=== PATIENT | male | born 1945 | race Two or more races ===

== ENCOUNTER 2017-08-18 23:02 | Inpatient (IN) ==
[2017-08-18] MEDS ORDERED: SODIUM CHLORIDE 0.9% 1,000 ML IV STA (23:12)
[2017-08-18] MEDS ORDERED: ONDANSETRON 4 MG/2 ML VIAL IV STA (23:12)
[2017-08-18] MEDS ORDERED: KETOROLAC 30 MG/1 ML VIAL IV STA (23:14)
[2017-08-18] MEDS ORDERED: INSULIN REGULAR 100 UNIT/ML IV STA (23:37)
[2017-08-18] MEDS ORDERED: KETOROLAC 30 MG/1 ML VIAL ONE (23:43)
[2017-08-18] MEDS ORDERED: ONDANSETRON 4 MG/2 ML VIAL ONE (23:43)
[2017-08-18] MEDS ORDERED: INSULIN NPH 100 UNIT/ML SUBCUT ONE (23:44)
[2017-08-18] MEDS ORDERED: INSULIN REGULAR 100 UNIT/ML ONE (23:45)
[2017-08-19 00:04] LABS: Albumin 3.5 G/DL (3.4-5.0); Bilirubin,Total 0.5 MG/DL (0.2-1.0); Calcium 8.8 MG/DL (8.5-10.1); Magnesium 2.5 MG/DL (1.8-2.4); Osmolality,Calculated 296.9 MOS/KG (273-304); Potassium 2.8 MMOL/L (3.5-5.1); Total Protein 7.3 G/DL (6.4-8.3)
[2017-08-19 00:16] LABS: Lactic Acid 0.9 MMOL/L (0.4-2.0)
[2017-08-19 00:23] LABS: Basophils % 0.8 % (0.0-0.8); Eosinophils # 0.1 10*3/uL (0.0-0.87); Eosinophils % 2.3 % (0.00-10.9); Immature Granulocytes % 0.6 %; Immature Granulocytes Absolute 0.03 #; Lymphocytes # 1.1 10*3/uL (1.4-4.0); Lymphocytes % 22.2 % (21.2-54.2); Mean Corpuscular Hemoglobin 31 PG (27-34); Mean Corpuscular Volume 81.8 FL (87-102); Mean Platelet Volume 10.7 FL (9.6-12.0); Monocytes # 0.3 10*3/uL (0.11-0.8); Monocytes % 6.6 % (1.7-12.7); Neutrophils # 3.3 10*3/uL (1.4-7.4); Neutrophils % 67.5 % (38.7-73.9); Platelet Count 197 T/CUMM (130-400); Red Cell Distribution Width 12.2 % (9.3-17.3)
[2017-08-19] MEDS ORDERED: POTASSIUM CHLORIDE 20 MEQ TABLET PO ONE (00:29)
[2017-08-19] MEDS ORDERED: POTASSIUM CHLORIDE 20 MEQ TABLET PO STA (00:29)
[2017-08-19 00:31] LABS: Hematocrit 31.3 VOL% (42.0-52.0); Hemoglobin 12.1 GM/DL (14.0-18.0)
[2017-08-19] MEDS ORDERED: SODIUM CHLORIDE 0.9% 1,000 ML IV STA ×2 (00:45→10:36)
[2017-08-19] MEDS ORDERED: INSULIN REGULAR 100 UNIT/ML IV STA ×2 (00:50→02:01)
[2017-08-19] MEDS ORDERED: INSULIN REGULAR 100 UNIT/ML ONE ×4 (00:52→15:16)
[2017-08-19] MEDS ORDERED: POTASSIUM CHLORIDE RIDER 20 MEQ in PREMIX 1 EACH IV STA (01:09)
[2017-08-19 02:08] LABS: Band Neutrophils 3 % (0-10); Eosinophils 3 % (0-10); Lymphocytes 23 % (20-55); Segmented Neutrophils 63 % (50-85); Total Cells Counted 100
[2017-08-19 02:09] LABS: Anisocytosis 1+; Hypochromasia 1+; Microcytosis 1+; Platelet Estimate Normal
[2017-08-19 02:47] LABS: Apearance,Urine CLEAR (Clear); Bacteria,Urine Occasional /HPF (Few); Bilirubin,Urine Negative (Negative); Blood, Urine Small mg/dL (Negative); Glucose,Urine (UA) >=500 mg/dL (Negative); Hyaline Casts,Urine 1 /LPF (0-3); Ketones,Urine 20 mg/dL (Negative); Mucus,Urine Occasional /LPF (Occasional); Nitrite,Urine Negative (Negative); Protein,Urine Negative; Urine Color Straw (Yellow); Urine Urobilinogen < 2.0 EU/DL (0.2-1.0); WBC,Urine <1 /HPF (0-6)
[2017-08-19 03:22] LABS: Osmolality,Calculated 299.5 MOS/KG (273-304)
[2017-08-19] MEDS ORDERED: DEXTROSE 50% 25 GM/50 ML VIAL IV PRN ×2 (04:37)
[2017-08-19] MEDS ORDERED: SODIUM CHLORIDE 0.9% IV PRN (04:37)
[2017-08-19] MEDS ORDERED: SODIUM PHOSPHATE IV PRN (04:37)
[2017-08-19] MEDS ORDERED: MAGNESIUM SULF RIDER 2 GM in PREMIX 1 EACH IV PRN (04:37)
[2017-08-19] MEDS ORDERED: SODIUM BICARB INJ 100 MEQ in STERILE WATER INJ 400 ML IV PRN (04:37)
[2017-08-19] MEDS ORDERED: INSULIN REGULAR 100 UNIT/ML IV ONE (04:37)
[2017-08-19] MEDS ORDERED: CALCIUM CHLORIDE 1,000 MG/10 ML SYRINGE IV ONE ×2 (04:37→05:21)
[2017-08-19] MEDS ORDERED: MAGNESIUM SULF RIDER 4 GM in PREMIX 1 EACH IV PRN (04:37)
[2017-08-19] MEDS ORDERED: INSULIN REGULAR DRIP 100 ML IV SCH ×3 (04:37→13:30)
[2017-08-19] MEDS: ENOXAPARIN 30 MG/0.3 ML SYRINGE SUBCUT SCH (04:40)
[2017-08-19] MEDS: cefTRIAXone 1,000 MG in SYRINGE 1 EACH IV SCH ×2 (04:45→18:06)
[2017-08-19] MEDS ORDERED: cefTRIAXone 1,000 MG VIAL ONE (05:20)
[2017-08-19] MEDS ORDERED: ENOXAPARIN 40 MG/0.4 ML SYRINGE ONE (05:21)
[2017-08-19 05:26] LABS: Calcium 8.3 MG/DL (8.5-10.1); Osmolality,Calculated 302.2 MOS/KG (273-304); Potassium 3.2 MMOL/L (3.5-5.1)
[2017-08-19 05:33] LABS: VBG Base Excess -9.3 MEQ/L (0-4); VBG HCO3 16.3 MEQ/L (24-28); VBG Oxygen Saturation 98.4 %; VBG PCO2 34.2 MMHG (41-51); VBG PH 7.296
[2017-08-19 05:35] LABS: Risk Ratio 10.72; VLDL CHOLESTEROL 163.8 MG/DL
[2017-08-19] MEDS: SODIUM CHLORIDE 0.9% 1,000 ML IV SCH ×2 (06:14→18:23)
[2017-08-19 06:54] LABS: ABG Base Excess -9.4 MMOL/L (-2.5-2.5); ABG HCO3 16.9 MMOL/L (20-26); ABG Oxygen Saturation 95.8 % (95-100); ABG PCO2 31.6 MM HG (35-48); ABG PH 7.311 (7.35-7.45); ABG PO2 79.3 MM HG (80-95); ABG TCO2 14.7 MMOL/L (23-27); Allen Test Positive; Pt O2 Delivery Device Room Air
[2017-08-19] MEDS ORDERED: SODIUM CHLORIDE 0.9% 1,000 ML IV SCH ×2 (08:44→14:00)
[2017-08-19 10:17] LABS: Calcium 8.6 MG/DL (8.5-10.1); Osmolality,Calculated 297.2 MOS/KG (273-304)
[2017-08-19 10:21] LABS: Potassium 2.5 MMOL/L (3.5-5.1)
[2017-08-19] MEDS ORDERED: PANTOPRAZOLE 40 MG VIAL IV SCH (11:30)
[2017-08-19 11:46] LABS: Alanine Aminotransferase 17 U/L (16-61); Albumin 2.8 G/DL (3.4-5.0); Alkaline Phosphatase 99 U/L (45-117); Aspartate Amino Transferase 16 U/L (0-37); Bilirubin,Total < 0.39 MG/DL (0.2-1.0); Blood Urea Nitrogen 76 MG/DL (7-18); Calcium 9.1 MG/DL (8.5-10.1); Glucose 136 MG/DL (74-106); Osmolality,Calculated 294.1 MOS/KG (273-304); Sodium 135 MMOL/L (136-145); Total Protein 6.5 G/DL (6.4-8.3)
[2017-08-19 11:47] LABS: Potassium 2.5 MMOL/L (3.5-5.1)
[2017-08-19] MEDS ORDERED: POTASSIUM CHLORIDE RIDER 100 ML IV ONE (11:56)
[2017-08-19] MEDS ORDERED: POTASSIUM CHLORIDE RIDER 10 MEQ in PREMIX 1 EACH IV PRN (11:57)
[2017-08-19] MEDS: POTASSIUM CHLORIDE RIDER 10 MEQ in PREMIX 1 EACH IV PRN ×2 (12:17→20:54)
[2017-08-19] MEDS ORDERED: DEXTROSE 50% 25 GM/50 ML SYRINGE IV ONE (12:29)
[2017-08-19] MEDS ORDERED: PANTOPRAZOLE 40 MG VIAL IV ONE (13:26)
[2017-08-19 13:50] LABS: Free T4 (Free Thyroxine) 1.14 NG/DL (0.76-1.46); Thyroid Stimulating Hormone 0.52 uIU/ml (0.358-3.74)
[2017-08-19 13:54] LABS: Osmolality,Calculated 298.5 MOS/KG (273-304); Potassium 2.8 MMOL/L (3.5-5.1)
[2017-08-19] MEDS ORDERED: INSULIN GLARGINE 100 UNIT/ML SUBCUT STA (14:40)
[2017-08-19] MEDS ORDERED: GLUCAGON 1 MG VIAL IM PRN (14:40)
[2017-08-19] MEDS ORDERED: INSULIN REGULAR 100 UNIT/ML SUBCUT STA (14:42)
[2017-08-19] MEDS ORDERED: DEXTROSE 5% NACL 0.9% 1,000 ML IV SCH (15:00)
[2017-08-19] MEDS: INSULIN REGULAR 100 UNIT/ML SUBCUT SCH ×3 (17:48→23:05)
[2017-08-19 19:01] LABS: Calcium 8.5 MG/DL (8.5-10.1); Osmolality,Calculated 297.7 MOS/KG (273-304); Potassium 2.6 MMOL/L (3.5-5.1)
[2017-08-19] MEDS ORDERED: SODIUM CHLORIDE 0.9% 1,000 ML IV ONE (19:17)
[2017-08-19] MEDS ORDERED: SODIUM CHLORIDE 0.45% 1,000 ML IV SCH (20:44)
[2017-08-19] MEDS: SODIUM CHLOR 0.9% KCL 20 MEQ 20 MEQ/1,000 ML BAG IV SCH (20:54)
[2017-08-19 21:03] LABS: Calcium 8.5 MG/DL (8.5-10.1); Osmolality,Calculated 303.7 MOS/KG (273-304); Potassium 3.2 MMOL/L (3.5-5.1)
[2017-08-20 01:27] LABS: Calcium 8.7 MG/DL (8.5-10.1); Osmolality,Calculated 299.7 MOS/KG (273-304); Phosphorous 2.6 MG/DL (2.5-4.9); Potassium 2.9 MMOL/L (3.5-5.1)
[2017-08-20] MEDS: POTASSIUM CHLORIDE RIDER 10 MEQ in PREMIX 1 EACH IV PRN (01:41)
[2017-08-20] MEDS: SODIUM CHLOR 0.9% KCL 20 MEQ 20 MEQ/1,000 ML BAG IV SCH (02:08)
[2017-08-20] MEDS: INSULIN REGULAR 100 UNIT/ML SUBCUT SCH ×6 (04:03→20:33)
[2017-08-20] MEDS: cefTRIAXone 1,000 MG in SYRINGE 1 EACH IV SCH (04:03)
[2017-08-20] MEDS ORDERED: POTASSIUM CHLORIDE 20 MEQ TABLET PO ONE ×2 (05:06→10:00)
[2017-08-20] MEDS: PANTOPRAZOLE 40 MG TABLET PO SCH (08:49)
[2017-08-20] MEDS: POTASSIUM CHLORIDE 20 MEQ TABLET PO SCH ×4 (08:50→20:33)
[2017-08-20] MEDS: ENOXAPARIN 30 MG/0.3 ML SYRINGE SUBCUT SCH (08:50)
[2017-08-20] MEDS ORDERED: INSULIN GLARGINE 100 UNIT/ML SUBCUT SCH ×2 (09:00)
[2017-08-20] MEDS ORDERED: BISACODYL 5 MG TABLET PO ONE (09:55)
[2017-08-20] MEDS: POLYETHYLENE GLYCOL POWDER 17 GM PACK PO SCH (10:29)
[2017-08-20] MEDS: SODIUM CHLORIDE 0.9% 1,000 ML IV SCH ×4 (10:42→22:48)
[2017-08-20] MEDS ORDERED: HYDROCORTISONE 2.5% RECTAL CREAM 30 GM TUBE TOP PRN (14:05)
[2017-08-20] MEDS ORDERED: INSULIN LISPRO 100 UNIT/ML SUBCUT SCH (17:00)
[2017-08-20 17:17] LABS: Calcium 8.9 MG/DL (8.5-10.1); Osmolality,Calculated 299.7 MOS/KG (273-304); Potassium 3.5 MMOL/L (3.5-5.1)
[2017-08-20] MEDS: SODIUM BICARBONATE 650 MG TABLET PO SCH (20:33)
[2017-08-21] MEDS: SODIUM CHLORIDE 0.9% 1,000 ML IV SCH ×3 (00:14→10:41)
[2017-08-21 07:15] LABS: Basophils # 0.1 10*3/uL (0.0-0.2); Basophils % 1.4 % (0.0-0.8); Eosinophils # 0.3 10*3/uL (0.0-0.87); Hematocrit 24.3 VOL% (42.0-52.0); Immature Granulocytes % 0.7 %; Immature Granulocytes Absolute 0.03 #; Lymphocytes # 1.8 10*3/uL (1.4-4.0); Lymphocytes % 41.3 % (21.2-54.2); Mean Corpuscular Hemoglobin 32 PG (27-34); Mean Corpuscular Volume 85.9 FL (87-102); Mean Platelet Volume 10.2 FL (9.6-12.0); Monocytes # 0.5 10*3/uL (0.11-0.8); Monocytes % 12.1 % (1.7-12.7); Neutrophils # 1.7 10*3/uL (1.4-7.4); Neutrophils % 38.5 % (38.7-73.9); Red Cell Distribution Width 13.4 % (9.3-17.3); White Blood Count 4.3 T/CUMM (4-12)
[2017-08-21 07:17] LABS: Platelet Count 154 T/CUMM (130-400); Red Blood Count 2.83 MC/CUMM (3.8-5.5)
[2017-08-21 07:25] LABS: Calcium 8.6 MG/DL (8.5-10.1); Potassium 3.1 MMOL/L (3.5-5.1)
[2017-08-21] MEDS ORDERED: INSULIN GLARGINE 100 UNIT/ML SUBCUT SCH (07:40)
[2017-08-21 07:52] LABS: Eosinophils 4 % (0-10); Hypochromasia 1+; Lymphocytes 43 % (20-55); Risk Ratio 8.6; Segmented Neutrophils 43 % (50-85); Total Cells Counted 100
[2017-08-21 07:53] LABS: Microcytosis 1+; Platelet Estimate Adequate
[2017-08-21] MEDS: INSULIN REGULAR 100 UNIT/ML SUBCUT SCH ×4 (08:32→20:26)
[2017-08-21] MEDS: INSULIN LISPRO 100 UNIT/ML SUBCUT SCH ×3 (08:33→16:08)
[2017-08-21] MEDS: SODIUM BICARBONATE 650 MG TABLET PO SCH ×3 (08:35→20:25)
[2017-08-21] MEDS: POTASSIUM CHLORIDE 20 MEQ TABLET PO SCH ×4 (08:35→20:25)
[2017-08-21] MEDS: PANTOPRAZOLE 40 MG TABLET PO SCH (08:35)
[2017-08-21] MEDS: ENOXAPARIN 30 MG/0.3 ML SYRINGE SUBCUT SCH (08:35)
[2017-08-21] MEDS: POLYETHYLENE GLYCOL POWDER 17 GM PACK PO SCH ×2 (08:36→10:22)
[2017-08-21 09:25] LABS: Basophils # 0.1 10*3/uL (0.0-0.2); Basophils % 1.2 % (0.0-0.8); Eosinophils # 0.3 10*3/uL (0.0-0.87); Eosinophils % 5.8 % (0.00-10.9); Hematocrit 25.7 VOL% (42.0-52.0); Hemoglobin 9.4 GM/DL (14.0-18.0); Immature Granulocytes Absolute 0.05 #; Lymphocytes # 1.7 10*3/uL (1.4-4.0); Lymphocytes % 35.1 % (21.2-54.2); Mean Corpuscular HGB Conc 36.6 GM/DL (32-36); Mean Corpuscular Hemoglobin 32 PG (27-34); Mean Corpuscular Volume 86.8 FL (87-102); Mean Platelet Volume 10.3 FL (9.6-12.0); Monocytes # 0.5 10*3/uL (0.11-0.8); Monocytes % 10.7 % (1.7-12.7); Neutrophils # 2.2 10*3/uL (1.4-7.4); Neutrophils % 46.2 % (38.7-73.9); Platelet Count 180 T/CUMM (130-400); Red Blood Count 2.96 MC/CUMM (3.8-5.5); Red Cell Distribution Width 13.6 % (9.3-17.3); White Blood Count 4.8 T/CUMM (4-12)
[2017-08-21 10:06] LABS: Folate 12.2 NG/ML (5.4-24.0); Vitamin B12 1184 PG/ML (211-911)
[2017-08-21 11:08] LABS: Sedimentation Rate-Westergren 114 MM/HR (0-20)
[2017-08-22 06:54] LABS: Basophils # 0.1 10*3/uL (0.0-0.2); Basophils % 1.3 % (0.0-0.8); Eosinophils # 0.3 10*3/uL (0.0-0.87); Eosinophils % 6.3 % (0.00-10.9); Hematocrit 23.3 VOL% (42.0-52.0); Hemoglobin 8.5 GM/DL (14.0-18.0); Immature Granulocytes % 0.9 %; Immature Granulocytes Absolute 0.04 #; Lymphocytes # 1.8 10*3/uL (1.4-4.0); Lymphocytes % 37.9 % (21.2-54.2); Mean Corpuscular HGB Conc 36.5 GM/DL (32-36); Mean Corpuscular Hemoglobin 32 PG (27-34); Mean Corpuscular Volume 86.9 FL (87-102); Mean Platelet Volume 10.1 FL (9.6-12.0); Monocytes # 0.6 10*3/uL (0.11-0.8); Monocytes % 12.1 % (1.7-12.7); Neutrophils # 1.9 10*3/uL (1.4-7.4); Neutrophils % 41.5 % (38.7-73.9); Platelet Count 150 T/CUMM (130-400); Red Blood Count 2.68 MC/CUMM (3.8-5.5); Red Cell Distribution Width 13.3 % (9.3-17.3); White Blood Count 4.6 T/CUMM (4-12)
[2017-08-22 07:15] LABS: Calcium 8.4 MG/DL (8.5-10.1); Osmolality,Calculated 298.7 MOS/KG (273-304); Potassium 3.1 MMOL/L (3.5-5.1)
[2017-08-22] MEDS: PANTOPRAZOLE 40 MG TABLET PO SCH (08:47)
[2017-08-22] MEDS: SODIUM BICARBONATE 650 MG TABLET PO SCH (08:47)
[2017-08-22] MEDS: INSULIN LISPRO 100 UNIT/ML SUBCUT SCH ×2 (08:47→12:07)
[2017-08-22] MEDS: ENOXAPARIN 30 MG/0.3 ML SYRINGE SUBCUT SCH (08:48)
[2017-08-22] MEDS: INSULIN REGULAR 100 UNIT/ML SUBCUT SCH ×2 (08:55→12:08)
[2017-08-22] MEDS: POLYETHYLENE GLYCOL POWDER 17 GM PACK PO SCH (08:59)
[2017-08-22] MEDS ORDERED: INSULIN GLARGINE 100 UNIT/ML SUBCUT SCH (09:00)
[2017-08-22 09:41] LABS: Hemoglobin A1 (Alkaline) 97.7 % (96.5-98.5); Hemoglobin A2 (Alkaline) 2.3 % (1.5-3.5)
[2017-08-22] MEDS: POTASSIUM CHLORIDE 20 MEQ TABLET PO PRN ×2 (10:22→12:07)
[2017-08-22 11:13] VITALS: BP 140/96
== END 2017-08-22 13:30 | disposition home or self-care (01) | DRG 637 ==
LOC: N.ED 23:02 → SUATTDRO 08-19 03:41 → N.EDINP 08-19 03:41 → N.5E 08-19 17:10
PROVIDERS: ADMIT Hospitalist; ATTEND Internal Medicine Nephrology